=== PATIENT | female | born 1970 | race Caucasian/White ===

== ENCOUNTER 2017-01-05 05:24 | Day surgery (SDC) | payer BC, MEDICAID ==
[~2017-01-05] VITALS: Ht 154.9 cm; Wt 99.2 kg
[2017-01-05] VITALS (13 sets, daily range): BP systolic 134–157; BP diastolic 71–97; PULSE 78–95; RESP 9–18; Ht 154.9 cm; Wt 99.2 kg
[2017-01-05] MEDS ORDERED: DEXAMETHASONE 4 MG/ML 1 ML INJ ONE ×3 (06:53→10:31)
[2017-01-05] MEDS ORDERED: BUPIVACAINE 0.5% (SDV) 30 ML INJ ONE (06:53)
[2017-01-05] MEDS ORDERED: LIDOCAINE 1% (STERILE-PAK) 30 ML INJ ONE (06:53)
[2017-01-05] MEDS ORDERED: BUPIVACAINE 0.25% (MPF) 30 ML INJ ONE (06:53)
[2017-01-05] MEDS ORDERED: KETOROLAC 30 MG INJ ONE (07:06)
[2017-01-05] MEDS ORDERED: PROPOFOL 20 ML ONE ×3 (07:06→10:30)
[2017-01-05] MEDS ORDERED: LIDOCAINE 1% (MDV) 20 ML INJ ONE (07:06)
[2017-01-05] MEDS ORDERED: FENTAnyl 50 MCG/ML VIAL ONE ×2 (07:06→10:31)
[2017-01-05] MEDS ORDERED: ONDANSETRON 4 MG INJ ONE ×2 (07:06→10:31)
--- NOTE | 2017-01-05 07:23 | HPN ---
Date/Time of Note Date/Time of Note DATE: 01/05/17 TIME: 07:22 Interval H&P Admission Note Pt. seen H&P reviewed: No system changes ALBERTINA KAUR DPM Jan 05, 2017 07:23
[2017-01-05] MEDS ORDERED: CEFAZOLIN 1 GM INJ ONE (07:26)
--- NOTE | 2017-01-05 07:57 | SIPON ---
Date/Time of Note Date/Time of Note DATE: 01/05/17 TIME: 07:54 Operative Report Preoperative Diagnosis soft tissue mass Postoperative Diagnosis same Operation/Procedure Performed resection of soft tissue mass Surgeon see signature line intellectual property legal assistant none Anesthesia: MAC, other Estimated blood loss: none Transfusion Required none Specimen none Grafts/Implants none Complications none ALBERTINA KAUR DPM Jan 05, 2017 07:57
[2017-01-05] MEDS ORDERED: METOCLOPRAMIDE 10 MG INJ IV PRN (09:00)
[2017-01-05] MEDS ORDERED: ONDANSETRON 4 MG INJ IV PRN (09:00)
[2017-01-05] MEDS ORDERED: LABETALOL HCL 20MG INJ IV PRN (09:00)
[2017-01-05] MEDS ORDERED: hydrALAzine 20 MG INJ IV PRN (09:00)
[2017-01-05] MEDS ORDERED: FENTAnyl 50 MCG/ML VIAL IV PRN ×2 (09:00)
[2017-01-05] MEDS ORDERED: HYDROmorphONE (0.2 MG/ML) 10ML SYG IV PRN (09:00)
--- NOTE | 2017-01-05 09:40 | OPR ---
DATE OF OPERATION: 01/05/2017 PREOPERATIVE DIAGNOSIS: Soft tissue mass, right foot. POSTOPERATIVE DIAGNOSIS: Soft tissue mass, right foot. OPERATIVE PROCEDURE: Resection of soft tissue mass, right foot. SURGEON: Jorje Naqvi DPM DESCRIPTION OF PROCEDURE: The patient was brought to the OR and placed in the supine position on the operating room table. Anesthesia was achieved using MAC and local for 10 mL of lidocaine one percent plain. The ankle was then wrapped several times with Webril. The tourniquet was placed over the Webril. Next, the foot was prepped and draped in the usual sterile fashion. The tourniquet was inflated to 250 mmHg. Attention was directed to the dorsal lateral aspect of the right foot. A 1-cm incision was made over the soft tissue mass. The incision was deepened in the usual sterile fashion. The incision was deepened using sharp and blunt dissection. Next, the soft tissue mass was identified and resected in toto. The area was then flushed with normal saline. The closure was obtained using 4-0 Vicryl and skin closure was obtained also using Monocryl sutures in simple interrupted fashion. The surgical site was then infiltrated with 4 mL of 0.5 percent Marcaine plain and 1 mL of dexamethasone phosphate. The surgical site was then covered with Adaptic, 4 x 4 and Kerlix in a compressive fashion. Tourniquet was deflated and immediate capillary refill was observed to all digits of the right foot. The patient tolerated the anesthesia and procedure well, and left the OR for the recovery room with vital signs stable and neurovascular status intact. Postop oral and written instructions were given to the patient. Will follow up with the patient in the office in two days. Dictated By: Jorje Naqvi DPM /pearl/molly /Document#: [id number]
[2017-01-05] MEDS ORDERED: MIDAZOLAM 1 MG/ML 2 ML INJ ONE (10:30)
[2017-01-05] MEDS ORDERED: GLYCOPYRROLATE 0.4 MG INJ ONE (10:30)
[2017-01-05] MEDS ORDERED: NEOSTIGMINE 3 MG/3 ML SYRINGE ONE (10:30)
[2017-01-05] MEDS ORDERED: ROCURONIUM 50 MG INJ ONE (10:30)
[2017-01-05] MEDS ORDERED: LIDOCAINE 2% (SDV) 5 ML INJ ONE (10:30)
== END 2017-01-05 10:40 | disposition home or self-care (01) ==
LOC: SDS 05:24 → EDSTATUS 07:30 → SDS 10:40
PROVIDERS: ATTEND Podiatrist
DX: D17.23 Benign lipomatous neoplasm of skin and subcutaneous tissue of right leg (principal)
CPT/HCPCS: 11421; 88307; J0690; J1100; J1885; J2710; J3010; L3260; Z7512; Z7610; J2250; J2405